=== PATIENT | female | born 1950 | race Caucasian/White ===

== ENCOUNTER 2016-05-30 12:20 | Observation (INO) ==
--- NOTE | 2016-05-30 12:35 | Emergency Department Note ---
Disposition Clinical Impression: Chest pain Disposition: Admitted As Inpatient Condition: Good General Adult HPI - General Chief complaint: ED Chest Pain Stated complaint: Chest Pain since 2am Time Seen by Provider: 05/30/16 12:27 Source: patient, family Limitations: no limitations - History of Present Illness Pain Scale: 6 - Related Data Home Medications Medication Instructions Recorded Confirmed Aspirin 81 mg PO DAILY 12/05/14 05/30/16 Lisinopril [Zestril] 20 mg PO DAILY 12/05/14 05/30/16 Nitroglycerin [Nitrostat] 0.4 mg SL Q5M PRN 12/05/14 05/30/16 Oxybutynin [Ditropan] 5 mg PO TID 12/05/14 05/30/16 Alendronate Sodium [Alendronate 70 mg PO FR 05/30/16 05/30/16 Sodium] Atorvastatin Calcium [Lipitor] 20 mg PO HS 05/30/16 05/30/16 Hydrochlorothiazide 25 mg PO DAILY 05/30/16 05/30/16 [Hydrochlorothiazide] Isosorbide MONOnitrate [Isosorbide 10 mg PO BID 05/30/16 05/30/16 Mononitrate] Omeprazole 10 mg PO DAILY 05/30/16 05/30/16 Allergies Allergy/AdvReac Type Severity Reaction Status Date / Time propoxyphene AdvReac Dizziness Verified 05/30/16 14:58 [From Tiffany-N] Past Medical History - Past Medical History Medical history: Reports: coronary artery disease, hypertension, malignancy, myocardial infarction, TIA Surgical history: Reports: , knee replacement Psychiatric history: Reports: no psych history - Social History Smoking Status: Former smoker Smokeless Tobacco Status: No Alcohol use: Reports: none Drug use: Reports: none Physical Exam - General Limitations: no limitations General appearance: alert, in no apparent distress Course Vital Signs Temperature 98.1 F 05/30/16 12:21 Pulse Rate 75 05/30/16 12:21 Respiratory Rate 18 05/30/16 12:21 Blood Pressure 132/82 05/30/16 12:21 O2 Sat by Pulse Oximetry 97 05/30/16 12:21 Temperature 97.9 F 05/31/16 06:30 Pulse Rate 78 05/31/16 06:30 Respiratory Rate 18 05/31/16 06:30 Blood Pressure 112/73 05/31/16 06:30 O2 Sat by Pulse Oximetry 97 05/31/16 06:30 Oxygen Delivery Oxygen Delivery Room Air Medical Decision Making - Lab Data Result diagrams: 05/31/16 02:52 05/31/16 02:52 Lab Results 05/30/16 05/30/16 05/30/16 Range/Units 12:47 12:47 12:47 WBC 5.8 (4.3-11.1) K/mcL RBC 4.39 (3.82-4.97) M/mcL Hgb 12.8 (11.5-15.4) g/dL Hct 39.2 (35.3-44.9) % MCV 89.3 (83.0-100.0) fL MCH 29.2 (28.0-33.3) pg MCHC 32.7 (31.6-35.5) g/dL RDW 14.1 (11.5-14.5) % Plt Count 195 (140-400) K/mcL MPV 11.7 (9.4-12.4) fL Immature Gran % 0.3 (0-4) % Seg Neutrophils % 64.3 % Lymphocytes % 27.4 % Monocytes % 6.6 % Eosinophils % 0.9 % Basophils % 0.5 % Neutrophils # 3.7 (1.6-8.9) K/mcL Lymphocytes # 1.6 (0.6-4.6) K/mcL Monocytes # 0.4 (0.0-1.3) K/mcL Eosinophils # 0.1 (0.0-0.6) K/mcL Basophils # 0.0 (0.0-0.2) K/mcL PT 12.0 (9.4-12.1) Seconds INR 1.1 APTT 32.4 (26.0-36.0) Seconds Sodium 135 L (136-145) mEq/L Potassium 4.7 H (3.5-4.5) mEq/L Chloride 98 (98-109) mEq/L Carbon Dioxide 26 (19-29) mEq/L BUN 18 (7-20) mg/dL Creatinine 0.90 (0.57-1.11) mg/dL Est GFR ( Amer) > 60 (> 60) Est GFR (Non-Af Amer) > 60 (> 60) BUN/Creatinine Ratio 20 (6-26) Glucose 111 H (70-99) mg/dL Calculated Osmolality 283 (280-300) Calcium 11.3 H (8.6-10.8) mg/dL Total Bilirubin (0.2-1.2) mg/dL Direct Bilirubin (0.0-0.5) mg/dL Indirect Bilirubin (0.0-1.2) mg/dL AST (5-34) Units/L ALT (0-55) Units/L Alkaline Phosphatase (38-126) Units/L Troponin I (0-0.03) ng/mL Serum Total Protein (6.0-8.3) g/dL Albumin (3.5-5.0) g/dL Globulin (2.4-3.5) g/dL Albumin/Globulin Ratio (1.1-2.2) 05/30/16 05/30/16 Range/Units 12:47 12:47 WBC (4.3-11.1) K/mcL RBC (3.82-4.97) M/mcL Hgb (11.5-15.4) g/dL Hct (35.3-44.9) % MCV (83.0-100.0) fL MCH (28.0-33.3) pg MCHC (31.6-35.5) g/dL RDW (11.5-14.5) % Plt Count (140-400) K/mcL MPV (9.4-12.4) fL Immature Gran % (0-4) % Seg Neutrophils % % Lymphocytes % % Monocytes % % Eosinophils % % Basophils % % Neutrophils # (1.6-8.9) K/mcL Lymphocytes # (0.6-4.6) K/mcL Monocytes # (0.0-1.3) K/mcL Eosinophils # (0.0-0.6) K/mcL Basophils # (0.0-0.2) K/mcL PT (9.4-12.1) Seconds INR APTT (26.0-36.0) Seconds Sodium (136-145) mEq/L Potassium (3.5-4.5) mEq/L Chloride (98-109) mEq/L Carbon Dioxide (19-29) mEq/L BUN (7-20) mg/dL Creatinine (0.57-1.11) mg/dL Est GFR ( Amer) (> 60) Est GFR (Non-Af Amer) (> 60) BUN/Creatinine Ratio (6-26) Glucose (70-99) mg/dL Calculated Osmolality (280-300) Calcium (8.6-10.8) mg/dL Total Bilirubin 0.8 (0.2-1.2) mg/dL Direct Bilirubin 0.3 (0.0-0.5) mg/dL Indirect Bilirubin 0.5 (0.0-1.2) mg/dL AST 15 (5-34) Units/L ALT 13 (0-55) Units/L Alkaline Phosphatase 59 (38-126) Units/L Troponin I 0.00 (0-0.03) ng/mL Serum Total Protein 7.2 (6.0-8.3) g/dL Albumin 4.1 (3.5-5.0) g/dL Globulin 3.1 (2.4-3.5) g/dL Albumin/Globulin Ratio 1.3 (1.1-2.2) Attestation Statement - Attestation Attestation: I examined this patient and my medical decision-making was reviewed with the POACHER WRINGER OPERATOR/PA/Advanced Practice Nurse/Resident Physician. I agree with the documented findings, disposition and treatment plan as described except to the extent set forth below. Face to face time provided Patient complains of chest discomfort over the past 10 hours. She admits to active chest pain at the time of my exam. She appears in no acute distress. EKG reviewed by me
[2016-05-30 12:53] LABS: Basophils % 0.5 %; Eosinophils # 0.1 K/mcL (0.0-0.6); Eosinophils % 0.9 %; Hematocrit 39.2 % (35.3-44.9); Hemoglobin 12.8 g/dL (11.5-15.4); Immature Granulocytes % 0.3 % (0-4); Lymphocytes # 1.6 K/mcL (0.6-4.6); Lymphocytes % 27.4 %; Mean Corpuscular HGB Conc 32.7 g/dL (31.6-35.5); Mean Corpuscular Hemoglobin 29.2 pg (28.0-33.3); Mean Corpuscular Volume 89.3 fL (83.0-100.0); Mean Platelet Volume 11.7 fL (9.4-12.4); Monocytes # 0.4 K/mcL (0.0-1.3); Monocytes % 6.6 %; Neutrophils # 3.7 K/mcL (1.6-8.9); Platelet Count 195 K/mcL (140-400); Red Blood Count 4.39 M/mcL (3.82-4.97); Red Cell Distribution Width 14.1 % (11.5-14.5); Segmented Neutrophils % 64.3 %
--- NOTE | 2016-05-30 12:59 | Emergency Department Note ---
Disposition Clinical Impression: Chest pain Qualifiers: Chest pain type: unspecified Qualified Code(s): R07.9 - Chest pain, unspecified Disposition: Admitted As Inpatient Condition: Good Instructions: Chest Pain (ED) Referrals: NO,PCP [Non-Partnered Physician] - Forms: ED Satisfaction Letter Time of Disposition: 13:45 Chest Pain HPI - General Chief Complaint: ED Chest Pain Stated Complaint: Chest Pain since 2am Time Seen by Provider: 05/30/16 12:27 Source: patient, family Mode of arrival: ambulatory Limitations: no limitations Vital Signs Reviewed: Yes Nursing Notes Reviewed: Yes - History of Present Illness HPI Narrative: 65-year-old female history of hypertension, former smoker, CAD present the ED with chest pain. She reports waken up at 2 AM this morning to go to the bathroom, while at rest sitting she experienced a sharp stabbing chest pain radiating to the left shoulder. She took one nitro which relieved her pain. She proceeded to go to sleep and woke up around 4 o'clock where she experienced sharp pain again. Since then she has taken a total of 2 nitro with moderate relief. She is currently experiencing a dull ache in the chest. She has taken a total of 162 mg aspirin today. She denies any shortness of breath, diaphoresis, nausea, vomiting or palpitations with the pain. Denies any recent illness, fevers, cough. She reports a normal stress tests and heart catheterization performed at [facility] July 2014. She recently had her carotids cleaned she reports. History of breast cancer 10 years ago denies any blood clots, recent long-distance travel, surgery, hospitalizations. Severity scale (1-10): 6 - Related Data Home Medications Medication Instructions Recorded Confirmed Aspirin 81 mg PO DAILY 12/05/14 12/05/14 Calcium Carbonate/Vitamin D3 1 each PO DAILY 12/05/14 12/05/14 [Calcium 500-Vit D3 400 Tablet] HydrOXYzine 25 mg PO DAILY 12/05/14 12/05/14 Isosorbide DInitrate [Isosorbide 50 mg PO BID 12/05/14 12/05/14 Dinitrate] Lisinopril [Zestril] 20 mg PO DAILY 12/05/14 12/05/14 Methocarbamol [Robaxin] 500 mg PO Q6H 12/05/14 12/05/14 Nitroglycerin [Nitrostat] 0.4 mg SL Q5M PRN 12/05/14 12/05/14 Omeprazole [PriLOSEC] 20 mg PO DAILY 12/05/14 12/05/14 Oxybutynin [Ditropan] 5 mg PO BID 12/05/14 12/05/14 Previous Rx's Medication Instructions Recorded OxyCODONE Immed Rel [Roxicodone 5 1 - 2 tab PO Q4H PRN #30 tablet 12/06/14 MG] Allergies Allergy/AdvReac Type Severity Reaction Status Date / Time Sulfa (Sulfonamide Allergy Mild Vomiting Verified 12/05/14 08:13 Antibiotics) All systems ED: reviewed and negative except as stated. Constitutional: Denies: fever, chills Cardiovascular: Reports: chest pain Respiratory: Denies: cough, dyspnea Gastrointestinal: Denies: abdominal pain, nausea, vomiting, diarrhea, melena, hematochezia Genitourinary: Denies: urgency, dysuria Musculoskeletal: Denies: back pain, neck pain Integumentary: Denies: rash, abrasion Neurological: Denies: headache, weakness Chest Pain PMH - Past Medical History Medical history: Reports: coronary artery disease, hypertension, malignancy, myocardial infarction, TIA Surgical history: Reports: , knee replacement Psychiatric history: Reports: no psych history - Social History Smoking Status: Former smoker Alcohol use: Reports: none Drug use: Reports: none Physical Exam - General Limitations: no limitations General appearance: alert, in no apparent distress - Head Head exam: atraumatic, normocephalic, normal inspection - Eye Eye exam: Present: normal appearance, PERRL, EOMI - ENT ENT exam: normal exam, normal oropharynx, mucous membranes moist - Neck Neck exam: Present: normal inspection, full ROM, trachea midline - Chest Chest inspection: Present: symmetric chest wall rise, other (left masectomy). Absent: tenderness - Respiratory Respiratory exam: Present: normal lung sounds bilaterally. Absent: respiratory distress, wheezes - Cardiovascular Cardiovascular exam: Present: regular rate, normal rhythm, normal heart sounds. Absent: systolic murmur, diastolic murmur - Abdominal Exam Abdominal exam: Present: soft, Non-Tender, normal bowel sounds. Absent: tenderness, distention, guarding, rebound, rigidity - Extremities Exam Extremities exam: Present: normal inspection, full ROM, normal capillary refill. Absent: tenderness, pedal edema, calf tenderness - Neurological Exam Neurological exam: Present: alert, oriented X3, normal gait - Psychiatric Psychiatric exam: Present: normal affect, normal mood - Skin Skin exam: Present: warm, dry, intact, normal color Course Course Narrative: 65-year-old female history of hypertension, CAD, former smoker presents to the ED with chest pain. Occurred at 2 AM this morning. She has taken a total of 3 nitro with moderate relief. Reports taking 161 mg aspirin today. Patient peers in no acute distress. Vital signs are stable. Heart is regular rate and rhythm. Lungs are clear auscultation bilaterally. Abdomen is soft nontender nondistended. Legs are nonedematous without calf tenderness. EKG is normal sinus rhythm without any acute ischemic changes. Chest pain workup initiated. Will obtain records from [facility]. HEART score 4 pending troponin. Nitro trial ordered, BP 132/82. - Reevaluation(s) Reevaluation #1: Troponin is 0. The EKG does not reveal any acute ischemic changes. It is normal sinus rhythm. HEART score is 4. CXR reveals no acute pulmonary process with hiatal hernia. Records from [facility] are pending from her heart catheterization performed July 2014. Patient will be admitted for further chest pain workup. Patient is in agreement with plan. Hospitalist page. Time: 13:26 Reevaluation #2: Records retrieved from [facility], a heart catheter report was not sent. There is a report 08/19/2014 following her left heart catheterization which dates mild to moderate non-obstructive coronary arterial disease noted in the ostium of the LAD, right coronary artery and proximal LAD. At that time she was recommended lifestyle risk modification such as smoking cessation. A carotid Doppler was also sent which revealed calcified plaque in the left carotid with good vertebral flow bilaterally. Time: 14:19 - Consultations Consultation #1: Spoke with on-call hospitalist david Maddox to admit for chest pain R/O ACS. No further orders at this time Time: 13:42 Vital Signs Temperature 98.1 F 05/30/16 12:21 Pulse Rate 75 05/30/16 12:21 Respiratory Rate 18 05/30/16 12:21 Blood Pressure 132/82 05/30/16 12:21 O2 Sat by Pulse Oximetry 97 05/30/16 12:21 Temperature 98.1 F 05/30/16 12:21 Pulse Rate 61 05/30/16 14:05 Respiratory Rate 16 05/30/16 14:05 Blood Pressure 138/96 05/30/16 14:05 O2 Sat by Pulse Oximetry 99 05/30/16 14:05 Oxygen Delivery Oxygen Delivery Room Air Chest Pain - Medical Records Medical records reviewed: Yes I reviewed the patient's medical records. - Lab Data Lab results reviewed: Yes I reviewed the patient's lab results. Result diagrams: 05/30/16 12:47 05/30/16 12:47 Lab Results 05/30/16 05/30/16 05/30/16 Range/Units 12:47 12:47 12:47 WBC 5.8 (4.3-11.1) K/mcL RBC 4.39 (3.82-4.97) M/mcL Hgb 12.8 (11.5-15.4) g/dL Hct 39.2 (35.3-44.9) % MCV 89.3 (83.0-100.0) fL MCH 29.2 (28.0-33.3) pg MCHC 32.7 (31.6-35.5) g/dL RDW 14.1 (11.5-14.5) % Plt Count 195 (140-400) K/mcL MPV 11.7 (9.4-12.4) fL Immature Gran % 0.3 (0-4) % Seg Neutrophils % 64.3 % Lymphocytes % 27.4 % Monocytes % 6.6 % Eosinophils % 0.9 % Basophils % 0.5 % Neutrophils # 3.7 (1.6-8.9) K/mcL Lymphocytes # 1.6 (0.6-4.6) K/mcL Monocytes # 0.4 (0.0-1.3) K/mcL Eosinophils # 0.1 (0.0-0.6) K/mcL Basophils # 0.0 (0.0-0.2) K/mcL PT 12.0 (9.4-12.1) Seconds INR 1.1 APTT 32.4 (26.0-36.0) Seconds Sodium 135 L (136-145) mEq/L Potassium 4.7 H (3.5-4.5) mEq/L Chloride 98 (98-109) mEq/L Carbon Dioxide 26 (19-29) mEq/L BUN 18 (7-20) mg/dL Creatinine 0.90 (0.57-1.11) mg/dL Est GFR ( Amer) > 60 (> 60) Est GFR (Non-Af Amer) > 60 (> 60) BUN/Creatinine Ratio 20 (6-26) Glucose 111 H (70-99) mg/dL Calculated Osmolality 283 (280-300) Calcium 11.3 H (8.6-10.8) mg/dL Troponin I (0-0.03) ng/mL 05/30/16 Range/Units 12:47 WBC (4.3-11.1) K/mcL RBC (3.82-4.97) M/mcL Hgb (11.5-15.4) g/dL Hct (35.3-44.9) % MCV (83.0-100.0) fL MCH (28.0-33.3) pg MCHC (31.6-35.5) g/dL RDW (11.5-14.5) % Plt Count (140-400) K/mcL MPV (9.4-12.4) fL Immature Gran % (0-4) % Seg Neutrophils % % Lymphocytes % % Monocytes % % Eosinophils % % Basophils % % Neutrophils # (1.6-8.9) K/mcL Lymphocytes # (0.6-4.6) K/mcL Monocytes # (0.0-1.3) K/mcL Eosinophils # (0.0-0.6) K/mcL Basophils # (0.0-0.2) K/mcL PT (9.4-12.1) Seconds INR APTT (26.0-36.0) Seconds Sodium (136-145) mEq/L Potassium (3.5-4.5) mEq/L Chloride (98-109) mEq/L Carbon Dioxide (19-29) mEq/L BUN (7-20) mg/dL Creatinine (0.57-1.11) mg/dL Est GFR ( Amer) (> 60) Est GFR (Non-Af Amer) (> 60) BUN/Creatinine Ratio (6-26) Glucose (70-99) mg/dL Calculated Osmolality (280-300) Calcium (8.6-10.8) mg/dL Troponin I 0.00 (0-0.03) ng/mL - Radiology Data Radiology results reviewed: Yes I reviewed the patient's radiology results. Chest X-Ray 05/30/16 12:26 IMPRESSION: No acute cardiopulmonary process. Large hiatal hernia. D/ / 05/30/2016 13:22:04 Dorothea Diez MD / tristan Interpreting Provider: Dorothea Diez MD - EKG Data EKG attestation: Yes I reviewed and interpreted this EKG. EKG results narrative: EKG performed 1227 normal sinus rhythm 77 bpm, good R-R wave progression, normal axis, there are no ST elevations or depressions, no T-wave inversions. Intervals are within normal limits UT interval 177 QRS 89 QT QTC 364 396. Compared to old EKG performed 06/13/2014 shows consistent findings normal sinus rhythm with a right ventricular conduction delay. No acute ischemic changes. Heart Score - Score History: Moderately Suspicious EKG: Normal Age: 45-65 Risk Factors: Equal/Greater than 3 risk factor or history of atherosclerotic disease Troponin: Less than normal limit HEART Score Total: 4
[2016-05-30 13:03] LABS: INR 1.1
[2016-05-30 13:05] LABS: BUN/Creatinine Ratio 20 (6-26); Blood Urea Nitrogen 18 mg/dL (7-20); Calcium 11.3 mg/dL (8.6-10.8); Carbon Dioxide 26 mEq/L (19-29); Chloride 98 mEq/L (98-109); Glucose 111 mg/dL (70-99); Osmolality,Calculated 283 (280-300); Potassium 4.7 mEq/L (3.5-4.5); Sodium 135 mEq/L (136-145); eGFR For African Americans > 60 (> 60); eGFR For Non-African Americans > 60 (> 60)
[2016-05-30 13:06] LABS: Activated Partial Thrombo Time 32.4 Seconds (26.0-36.0)
[2016-05-30] MEDS ORDERED: Nitroglycerin 0.4 MG TAB.SUBL SL PRN ×2 (13:28→17:55)
--- NOTE | 2016-05-30 14:58 | Internal Med History&Physical ---
<Endy King T - Last Filed: 05/30/16 17:10> Date of Encounter: 05/30/16 Internal Medicine - H&P: HPI History of present illness: Ms. Riddle is a 65 year old female Internal Medicine - H&P: Meds Aspirin 81 mg PO DAILY 12/05/14 [History] Lisinopril [Zestril] 20 mg PO DAILY 12/05/14 [History] Nitroglycerin [Nitrostat] 0.4 mg SL Q5M PRN 12/05/14 [History] Oxybutynin [Ditropan] 5 mg PO TID 12/05/14 [History] Alendronate Sodium [Alendronate Sodium] 70 mg PO FR 05/30/16 [History] Atorvastatin Calcium [Lipitor] 20 mg PO HS 05/30/16 [History] Hydrochlorothiazide [Hydrochlorothiazide] 25 mg PO DAILY 05/30/16 [History] Isosorbide MONOnitrate [Isosorbide Mononitrate] 10 mg PO BID 05/30/16 [History] Omeprazole 10 mg PO DAILY 05/30/16 [History] Allergies propoxyphene [From Darvocet-N] Adverse Reaction (Verified 05/30/16 14:58) Dizziness All Systems PM: A 10-system review of systems was performed and is negative for pertinent findings except as documented above in the HPI. - Constitutional Vitals: Temp Pulse Resp BP Pulse Ox 98.1 F 72 18 112/71 96 05/30/16 12:21 05/30/16 16:10 05/30/16 16:51 05/30/16 16:51 05/30/16 16:10 Internal Med - H&P Results - Labs CBC & Chem 7: 05/30/16 12:47 05/30/16 12:47 - Attending Attestation I examined this patient and my medical decision-making was reviewed with the WOOD DRILL OPERATOR/PA/Advanced Practice Nurse/Resident Physician. I agree with the documented findings, disposition and treatment plan as described except to the extent set forth below. 65 Y.O F with PMH of HTN, TIA, s/p CEA, presented with chest pain said to have started last night, pain was substernal and radiating to L arm, she denies any other symptoms. At time of review, she is s/p NTG SL X4 and 2 aspirins, she did not have chest pain any longer at my time of review. Physical exam: VSS, systemic exam unremarkable except for s/p mastectomy, no chest wall tenderness Labs and Imaging reviewed: CBC, chem, WNL. EKG is non-ischemic. CXR unremarkable. EKG NSR, no ischemic changes. Report from [facility] in 2014 with moderate non-obstructive CAD Assessment/Plan: Chest pain, highly suspicious for cardiac origin, initial troponin is negative, obtain ECHO, trend troponin, continue home doses of ASA, ACEI, Lipitor, Hold Isosorbide and no BB for possible nuclear stress test a.m, if chest pain recurs, patient will need nitro drip and urgent cardiology review. Chronic medical conditions are stable and other home meds may be resumes. Rest of details as in ALEIDA Cullen documentation <Arie Sauceda - Last Filed: 05/30/16 19:15> Date of Encounter: 05/30/16 Time of Encounter: 14:40 Assessment and Plan (1) Chest pain Current visit: Yes Status: Acute Assess: Ms. Riddle is a 65 year old female who presents from the ED with chief complaint of chest pain. Patient currently reports ongoing chest pain in her left chest since this episode began early this morning about 2 a.m. Patient describes her pain as constant then subsiding with radiation around to her back on the left side. She describes the pain as being 6 to 7 on a scale of 0 to 10 when it first began. She reports taking three rounds of nitroglycerin which reduced the pain to 2 to 3, however the pain continues to increase and is unresolved. Patient reports she had a myocardial infarction in 07/2014. Patient states she had a cardiac stress test (treadmill) in 2013 at [facility]. Patient reports chest pain rating of 4 to 5 during assessment and examination. She was given another dose of SL nitroglycerin and reports pain was reduced to level of 2-3. Plan: Continue aspirin Continue nitroglycerin EKG ordered EV echocardiogram ordered Nuclear stress test ordered NM katarina perf SPECT ordered Continuous cardiac monitoring Continuous pulse ox monitoring Acetaminophen ordered PRN for pain 1-3 Hydrocodone ordered PRN for pain 4-6 Morphine ordered PRN for pain 7-10 Qualifiers: Chest pain type: unspecified Qualified Code(s): R07.9 - Chest pain, unspecified (2) HTN (hypertension) Current visit: Yes Status: Chronic Assess: Patient presents with history of chronic HTN. Plan: Continue hydrochlorothiazide Continue lisinopril Monitor vitals and BP Qualifiers: Hypertension type: essential hypertension Qualified Code(s): I10 - Essential (primary) hypertension (3) Coronary artery disease Current visit: No Status: Chronic Assess: Patient presents with history of coronary artery disease. Plan: Continue aspirin Continuous cardiac monitoring ordered EKG ordered EV echocardiogram ordered Monitor vitals Qualifiers: Coronary Disease-Associated Artery/Lesion type: [place] artery [place] vs. transplanted heart: [place] heart Associated angina: angina presence unspecified Qualified Code(s): I25.10 - Atherosclerotic heart disease of [place] coronary artery without angina pectoris (4) DVT prophylaxis Current visit: Yes Status: Acute DVT prophylaxis ordered due to patient being inpatient status, chest pain, history of CAD, and [place]. Internal Medicine - H&P: HPI Chief complaint: Chest pain Admitted From: Emergency Dept Plans for Post Hospital Care: Home History of present illness: Ms. Riddle is a 65 year old female who presents from the ED with chief complaint of chest pain. Patient currently reports ongoing chest pain in her left chest since this episode began early this morning about 2 a.m. Patient describes her pain as constant then subsiding with radiation around to her back on the left side. She describes the pain as being 6 to 7 on a scale of 0 to 10 when it first began. She reports taking three rounds of nitroglycerin which reduced the pain to 2 to 3, however the pain continues to increase and is unresolved. Patient reports she had a myocardial infarction in 07/2014. Patient states she had a cardiac stress test (treadmill) in 2013 at [facility]. Patient reports chest pain rating of 4 to 5 during assessment and examination. She was given another dose of SL nitroglycerin and reports pain was reduced to level of 2-3. Patient was a tobacco abuser (3 packs daily) until 2014 when she suffered her [place]. She reports that she hasn't smoked since. Patient also reports having a left carotid endarterectomy in 2014. Mrs. Riddle has a history of osteoporosis, HTN, CAD, [place] (2014), Stroke (2014), TIA , and breast cancer for which she had a left breast mastectomy in 2006. Patient states that she sometimes experiences heart flutters. Denies being under the care of a user support specialist currently. Patient to be admitted as observation status. Continuous cardiac monitoring ordered. Troponins to be cycled. Past Med Surg Social Fam HX - Past Medical History Medical history: coronary artery disease, hypertension, malignancy, myocardial infarction, osteoporosis, TIA (Patient also reports she had a stroke in 2015) Psychiatric history: no psych history - Past Surgical History Surgical History: breast surgery (Left mastectomy), , carotid endarterectomy (Left side only in 2015), knee replacement (Bilteral knee replacement), other (Right shoulder surgery) - Social History Smoking Status: Former smoker Packs per day: 3 packs Smokeless Tobacco Status: No Alcohol use: none Drug use: none Occupational status: other Current living situation: Home, With Family Activity Level: Independent ambulation Recent Out of Country Travel Within the Last 8 Weeks: No Exposure or Possible Exposure to Illness During Travel: No - Family History Mother Race: Family Member Ethnicity: Non- Living Status: Age at : 74 Hx Family Cardiac Disorders: Yes (CHF) Hx Family Endocrine Disorder: Yes (DM) Father Race: Family Member Ethnicity: Non- Living Status: Age at : 61 Hx Family Cardiac Disorders: Yes (Massive [place]) Sister Age: 63 Race: Family Member Ethnicity: Non- Living Status: Still Living Hx Family Cardiac Disorders: Yes (Stents in legs) Brother Age: 58 Race: Family Member Ethnicity: Non- Living Status: Still Living Hx Family Cardiac Disorders: Yes (Stroke) Hx Family Endocrine Disorder: Yes (DM) All Systems PM: A 10-system review of systems was performed and is negative for pertinent findings except as documented above in the HPI. - Constitutional Constitutional: no chills, no fever(s), no night sweats Additional comments: Mrs. Riddle denies any fever, chills, recent illness, night sweats, chronic fatigue or weakness. - EENT Eyes: no change in vision, no discharge, no pain, no photophobia Ears: no ear discharge, no ear pain, no tinnitus Nose, mouth and throat: no dysphagia, no nasal discharge, no neck pain, no sore throat - Breasts Breasts: as per HPI Additional comments: Patient reports that she was diagnosed with breast cancer 10 years ago and had a mastectomy of her left breast in 2006. Reports she has not had any problems in the past 10 years and does not follow up with an oncologist regarding this. - Cardiovascular Cardiovascular ROS IM: chest pain, edema, palpitations, no diaphoresis, no dyspnea, no lightheadedness, no syncope Additional comments: Mrs. Riddle currently reports ongoing chest pain in her left chest since this episode began early this morning about 2 a.m. Patient describes her pain as constant then subsiding with radiation around to her back on the left side. She describes the pain as being 6 to 7 on a scale of 0 to 10 when it first began. She reports taking three rounds of nitroglycerin which reduced the pain to 2 to 3, however the pain continues to increase and is unresolved. Patient reports she had a myocardial infarction 07/2014. Reports she also had a stroke in 2014. Patient states she had a cardiac stress test (treadmill) in 2013 at [facility]. - Respiratory Respiratory: snoring, no cough, no dyspnea, no wheezing, no excessive phlegm production Additional comments: Patient denies, cough, dyspnea, wheezing, or phlegm/excessive sputum production. Patient does report snoring during sleep. confirms snoring but denies any apneic episodes. - Gastrointestinal Gastrointestinal: no abdominal pain, no diarrhea, no hematemesis, no hematochezia, no melena, no nausea, no vomiting Additional comments: Patient reports her bowels move daily and that her BMs are brown and formed. Denies recurrent diarrhea or incidence of hematochezia. Patient denies N/V/ hematemesis. - Genitourinary Genitourinary: urinary incontinence, no change in urinary stream, no dysuria, no flank pain, no hematuria Additional comments: Patient denies presence of urinary burning, urgency, and hesitation. Patient confirms mild urinary incontinence which has been occurring for some time. Menstruation: post menopausal - Musculoskeletal Musculoskeletal ROS IM: back pain, muscle cramps, no numbness, no tingling Additional comments: Patient denies any muscle weakness or fatigue, numbness, or tingling in her extremities. Patient does report cramping in her toes at night. - Integumentary Integumentary IM: no rash, no unusual bruising Additional comments: Patient denies any skin breakdown or changes in skin integrity. - Neurological Neurological ROS: as per HPI, no confusion, no convulsions, no focal weakness, no numbness, no tingling, no tremor(s) Additional comments: Mrs. Riddle is alert and oriented x3 and denies any neurological deficits, convulsions, seizures, tremors, focal deficits, dizziness, numbness, or tingling. - Psychiatric Psychiatric: as per HPI Additional comments: Patient denies any history of psychiatric problems, anxiety, or depression. - Endocrine Endocrine IM: as per HPI Additional comments: Patient denies any chronic weakness or fatigue, excessive sweating, or heat/ cold intolerance. - Hematologic/Lymphatic Hematologic/Lymphatic: no easy bruising Additional comments: Patient denies unusual bruising or bleeding. - Allergic/Immunologic Allergic/Immunologic: as per HPI - Constitutional Vitals: Temp Pulse Resp BP Pulse Ox 98.1 F 74 16 110/56 97 05/30/16 12:21 05/30/16 14:52 05/30/16 14:52 05/30/16 14:52 05/30/16 14:52 General appearance: Present: cooperative, A&O X 3, pleasant, no acute distress, answers questions appropriately Exam: Mrs. Riddle is alert and oriented x3, pleasant, cooperative, in good humor, and answers questions appropriately. Patient does not present with any outward symptoms of distress or discomfort, however she reports her chest pain as being 4 on a scale of 0 to 10. Patient given another dose of nitroglycerin during examination which she states brought her pain down to 3. - Head Head exam: Present: atraumatic, normocephalic - Eye Eye exam: Present: normal appearance, PERRL, conjuntiva pink, sclera anicteric Pupils: Present: PERRL Additional comments: Upon examination, PERRL without presence of nystagmus. - ENT ENT exam: Present: normal exam, normal external ear exam - Neck Neck exam general surgery: Present: normal inspection, supple, trachea midline - Respiratory Respiratory exam: Present: CTAB. Absent: accessory muscle use, rales, rhonchi, wheezes Additional comments: Upon auscultation, there are no abnormal breath sounds on inspiration or expiration bilaterally in ay lobes. - Cardiovascular Cardiovascular exam: Present: RRR, +S1, +S2. Absent: diastolic murmur, gallop, rubs, systolic murmur - GI/Abdominal GI/Abdominal exam: Present: normal bowel sounds, soft, no peritoneal signs Additional comments: Upon examination, Mrs. Camacho abdomen is soft with no signs of guarding or tenderness present upon palpation. Normal bowel sounds present in all quadrants. - Rectal Rectal exam: Present: deferred Additional comments: Rectal exam deferred. - Additional comments: exam deferred. - Extremities Exam Extremities exam: Present: normal capillary refill, normal inspection, warm, radial pulses palpable and symetrical Additional comments: Upon examination, patient's extremities are normal in color and good cap refill is present bilaterally in fingers and toes (<2). Extremities are warm and dry with no signs of skin breakdown or excoriation. Radial pulses are palpable and symmetrical bilaterally. - Back Exam Back exam: Present: normal inspection - Neurological Exam Neurological exam: Present: alert, oriented X3, reflexes normal, no focal deficits, strengths equal and symetr throughout Additional comments: Mrs. Riddle is alert and oriented x3 upon examination and assessment. Patient does not exhibit any focal deficits and is cooperative, conversational, answers all questions appropriately, and is in no apparent distress. No pronater drift. No speech deficits present. - Psychiatric Psychiatric exam: Present: normal affect, normal mood Additional comments: Patient denies any psychiatric history and denies anxiety and depression. - Skin Skin exam: Present: dry, intact, normal color, warm Additional comments: Upon examination, Mrs. Camacho skin is intact, normal color, warm, and dry. Patient denies any changes in skin integrity. Internal Med - H&P Results - Labs CBC & Chem 7: 05/30/16 12:47 05/30/16 12:47 Labs: Short CBC 05/30/16 Range/Units 12:47 WBC 5.8 (4.3-11.1) K/mcL Hgb 12.8 (11.5-15.4) g/dL Hct 39.2 (35.3-44.9) % Plt Count 195 (140-400) K/mcL Neutrophils # 3.7 (1.6-8.9) K/mcL BMP 05/30/16 12:47 Sodium 135 L Potassium 4.7 H Chloride 98 Carbon Dioxide 26 BUN 18 Creatinine 0.90 Glucose 111 H Calcium 11.3 H Cardiac Enzymes 05/30/16 Range/Units 12:47 Troponin I 0.00 (0-0.03) ng/mL - EKG Data EKG shows normal: sinus rhythm - EKG Data Prior EKG available for review: yes When compared to previous EKG: there are significant changes EKG comments: 05/30/16 15:16 EKG dated 05/30/16 shows normal sinus rhythm and normal ECG. EKG dated 06/13/14 shows sinus rhythm with possible right ventricular conduction delay. - Impressions ITS Impressions Chest X-Ray 05/30/16 12:26 IMPRESSION: No acute cardiopulmonary process. Large hiatal hernia. D/ / 05/30/2016 13:22:04 Dorothea Diez MD / tristan Interpreting Provider: Dorothea Diez MD - Diagnostic Studies Chest x-ray Additional comments: CXR dated 05/30/16 shows trachea midline. Cardiac silhouette unremarkable. Lungs clear without evidence of infiltrate, mass, or pneumothorax. No pleural fluid present. Previous repair on right shoulder. Large hiatal hernia present. No acute cardiopulmonary process. No comparative study.
[2016-05-30 16:38] LABS: Albumin 4.1 g/dL (3.5-5.0); Albumin/Globulin Ratio 1.3 (1.1-2.2); Bilirubin,Direct 0.3 mg/dL (0.0-0.5); Bilirubin,Indirect 0.5 mg/dL (0.0-1.2); Bilirubin,Total 0.8 mg/dL (0.2-1.2); Globulin 3.1 g/dL (2.4-3.5); Total Protein 7.2 g/dL (6.0-8.3)
[2016-05-30] MEDS ORDERED: *HR* HYDROcodone/Acet 5/325 mg TABLET PO PRN (17:56)
[2016-05-30] MEDS ORDERED: Acetaminophen 325 MG TABLET PO PRN (17:56)
[2016-05-30] MEDS ORDERED: Naloxone 0.4 MG/ML INJ IVP PRN (17:56)
[2016-05-30] MEDS ORDERED: *HR* Morphine 2 MG/ML SYRINGE IVP PRN (17:56)
[2016-05-31 03:17] LABS: Basophils % 0.7 %; Eosinophils # 0.1 K/mcL (0.0-0.6); Eosinophils % 2.2 %; Hematocrit 35.6 % (35.3-44.9); Immature Granulocytes % 0.2 % (0-4); Lymphocytes # 2.1 K/mcL (0.6-4.6); Lymphocytes % 35.7 %; Mean Corpuscular HGB Conc 33.7 g/dL (31.6-35.5); Mean Corpuscular Hemoglobin 30.2 pg (28.0-33.3); Mean Corpuscular Volume 89.7 fL (83.0-100.0); Mean Platelet Volume 12.2 fL (9.4-12.4); Monocytes # 0.5 K/mcL (0.0-1.3); Monocytes % 8.3 %; Neutrophils # 3.2 K/mcL (1.6-8.9); Platelet Count 177 K/mcL (140-400); Red Blood Count 3.97 M/mcL (3.82-4.97); Red Cell Distribution Width 14.5 % (11.5-14.5); Segmented Neutrophils % 52.9 %
[2016-05-31 03:31] LABS: Calcium 9.9 mg/dL (8.6-10.8); Potassium 4.2 mEq/L (3.5-4.5)
[2016-05-31 06:23] LABS: Bilirubin,Urine Negative (Negative); Blood,Urine Negative (Negative); Clarity,Urine Cloudy (Clear); Color,Urine Yellow (Yellow); Glucose,Urine (UA) Normal (Normal); Ketones,Urine Negative (Negative); Leukocyte Esterase,Urine Moderate (Negative); Nitrite,Urine Negative (Negative); PH,Urine 6.5 pH Units (5.0-8.0); Protein,Urine Negative (Neg-Trace); Specific Gravity,Urine 1.021 (1.010-1.025); Urobilinogen,Urine Normal (Normal)
[2016-05-31 06:25] LABS: Bacteria,Urine Many per hpf (None-Few); Hyaline Casts,Urine None Seen per lpf (None-Few); RBC,Urine 0-3 per hpf (0-3); Squamous Epithelial Cell,Urine Many per lpf (None-Few); WBC,Urine TNTC per hpf (0-3)
[2016-05-31] MEDS ORDERED: *HR* Enoxaparin 40 MG/0.4 ML SYRINGE SQ SCH (07:00)
[2016-05-31] MEDS ORDERED: Regadenoson 0.4 MG/5 ML SYRINGE IVP ONE (07:57)
[2016-05-31] MEDS ORDERED: Aspirin 81 MG TAB.CHEW PO SCH (09:00)
[2016-05-31] MEDS ORDERED: hydroCHLOROthiazide 25 MG TABLET PO SCH (09:00)
[2016-05-31] MEDS ORDERED: Lisinopril 20 MG TABLET PO SCH (09:00)
--- NOTE | 2016-05-31 11:45 | Nuclear Medicine Stress Report ---
Regadenoson Nuclear Stress Name: Tequila Riddle Date of Study: 05/31/2016 Date: 1950 Ht: 60.0 in Medical Record#: [id number] Age: 65 Wt: 151.0 lb Gender: Female Order #: [id number] Location: [facility] Room: OPT Supervising Provider: Dolly Giraldo CNP Reading Physician: Anuel Rachel DO, DAVID PRESTON FASNC Ordering Physician: Endy King MD Primary Care Physician: Arnulfo Pope DO Stress Technologist: Betty Devine, STEMMER MACHINE, CCT, CPFT Parts Person: Bruno Moralez Indications: Chest Pain Impression: Pharmacologic stress ECG is negative for ischemia at level of heart rate achieved. Gated EF > 70%. Perfusion imaging was negative for ischemia or infarct. History: Hypertension Stress Test Summary: Stress Test Type: Pharmacologic Regadenoson 0.4mg/5ml given IV Baseline Information: Initial Heart Rate: 74 Blood Pressure: 110/60 Stress Information: Stress Time: 4 min sec Test Terminated Due to (primary): As per protocol Maximum Blood Pressure: 100/52 Maximum Heart Rate: 117 Percent Maximum Heart Rate Achieved: 75 Double Product: [id number] METS Reached: 1 Symptoms: Shortness of breath Nuclear Summary: SPECT myocardial perfusion imaging using Tc99m Sestamibi given intravenously was performed at rest and following cardiac stress testing. The resting images were obtained following initial dose of 11 mCi. Following stress an additional dose of 30 mCi was given at peak exercise or 30 seconds post regadenoson infusion. Medication Given: Time Medication Dose Units Route Findings: Stress Note * Resting ECG demonstrated normal sinus rhythm. * No baseline arrhythmias were noted. * Pharmacologic stress ECG is negative for ischemia at level of heart rate achieved. * No arrhythmias were noted during stress. * Patient had no chest pain during stress. Hemodynamic responses * Normal hemodynamic responses to pharmacologic stress. Study Quality * Study quality is good. Gated EF > 70% * Gated EF > 70%. Left Ventricle * The left ventricle is not dilated. LVEDV = 36 mL. NORMALS * Normal wall motion. * Normal Segmental Perfusion in rest. * Normal segmental perfusion in stress. TID * No evidence of transient ischemic dilatation. TID ratio = 0.94. Lung Uptake * There is no evidence of increase lung uptake. Updated by Anuel Rachel DO, MOHAN, DAVID, CHYNA on 05/31/2016 11:41:27 AM electronically signed on 05/31/2016 11:42:17 AM with status of Final
--- NOTE | 2016-05-31 11:58 | Discharge Summary ---
Date of Encounter: 05/31/16 Time of Encounter: 11:57 - Discharge Diagnosis (1) Coronary artery disease Priority: Primary Status: Chronic Qualifiers: Coronary Disease-Associated Artery/Lesion type: [place] artery [place] vs. transplanted heart: [place] heart Associated angina: angina presence unspecified Qualified Code(s): I25.10 - Atherosclerotic heart disease of [place] coronary artery without angina pectoris (2) Essential hypertension Priority: Secondary Status: Chronic (3) Tobacco abuse Priority: Secondary Status: Chronic (4) HTN (hypertension) Priority: Secondary Status: Chronic Qualifiers: Hypertension type: essential hypertension Qualified Code(s): I10 - Essential (primary) hypertension - Discharge Medications Home Medications: Aspirin 81 mg PO DAILY 12/05/14 [History] Lisinopril [Zestril] 20 mg PO DAILY 12/05/14 [History] Nitroglycerin [Nitrostat] 0.4 mg SL Q5M PRN 12/05/14 [History] Oxybutynin [Ditropan] 5 mg PO TID 12/05/14 [History] Alendronate Sodium 70 mg PO FR 05/30/16 [History] Atorvastatin Calcium [Lipitor] 20 mg PO HS 05/30/16 [History] Hydrochlorothiazide 25 mg PO DAILY 05/30/16 [History] Omeprazole 10 mg PO DAILY 05/30/16 [History] Isosorbide MONOnitrate [Isosorbide Mononitrate] 20 mg PO BID #0 05/31/16 [Rx] Allergies/Adverse Reactions: Allergies propoxyphene [From Darvocet-N] Adverse Reaction (Verified 05/30/16 14:58) Dizziness Procedures/tests Complete & Pending: Procedures Performed prior 72 hours Category Date Time Status NM katarina perf SPECT multi [NM] Routine Exams 05/30/16 18:43 Taken EV echocardiogram Stat Y 05/31/16 16:02 Completed SP pharm nuclear stress Routine Y 05/31/16 08:10 Completed Date of admission: 05/30/16 15:01 Primary care physician: Arnulfo Pope, Discharging clinician: Endy King Anticipated date of discharge: 05/31/16 - Patient Status Disposition: Home, Self-Care Condition: Good Functional capacity at discharge: independent ambulation Overall status at discharge: patient is back to baseline - Discharge Instructions Follow Up With: Denver Mcmahon CNP [Advanced Practice Nurse] - 06/09/16 4:30 pm Arnulfo Pope DO [Primary Care Provider] - 06/08/16 1:45 pm Additional Instructions: TAKE MEDICATIONS PRESCRIBED. GO TO SCHEDULED FOLLOW-UP APPOINTMENT WITH PCP. IF CHEST PAIN RETURNS GO TO ER. - Diet and Activity Activity: resume usual activities as tolerated Diet: low fat, low cholesterol, low salt diet Interval History: See below Hospital course: 65 Y.O F with PMH of HTN, TIA, s/p CEA, presented with chest pain said to have started a day prior to presentation, pain was substernal and radiating to L arm , she denies any other symptoms. At time of review, she is s/p NTG SL X4 and 2 aspirins, she did not have chest pain any longer at my time of review. Physical exam: VSS, systemic exam unremarkable except for s/p mastectomy, no chest wall tenderness Labs and Imaging reviewed: CBC, chem, WNL. EKG is non-ischemic. CXR unremarkable. EKG NSR, no ischemic changes. Report from [facility] in 2014 with moderate non-obstructive CAD Assessment/Plan: Chest pain, highly suspicious for cardiac origin, initial troponin is negative, obtain ECHO, trend troponin, continue home doses of ASA, ACEI, Lipitor, Hold Isosorbide and no BB for possible nuclear stress test a.m, if chest pain recurs, patient will need nitro drip and urgent cardiology review. Patient was stable thorughout her hospital stay, her work up for ACS is negative We were awaiting her ECHO report when RN states patient could not wait anymore Will increase her long acting nitro Follow up with her own cardiology 3 minutes spent on tobacco cessation counselling Time spent discussing smoking cessation with patient: 3 to 10 minutes - Time Spent with Patient Total time spent providing and/or coordinating discharge services: Less than 30 minutes - Constitutional Vitals: Temp Pulse Resp BP Pulse Ox 98.0 F 69 18 111/71 99 05/31/16 11:15 05/31/16 11:15 05/31/16 11:15 05/31/16 11:15 05/31/16 11:15 General appearance: Present: cooperative, A&O X 3, pleasant, no acute distress, answers questions appropriately - Head Head exam: Present: atraumatic, normocephalic - Eye Eye exam: Present: PERRL, conjuntiva pink, sclera anicteric Pupils: Present: PERRL - Neck Neck exam general surgery: Present: supple, trachea midline. Absent: lymphadenopathy - Respiratory Respiratory exam: Present: CTAB. Absent: accessory muscle use, rales, rhonchi, wheezes - Cardiovascular Cardiovascular exam: Present: RRR, +S1, +S2. Absent: diastolic murmur, gallop, rubs, systolic murmur - GI/Abdominal GI/Abdominal exam: Present: normal bowel sounds, soft, no peritoneal signs. Absent: distended, tenderness - Extremities Exam Extremities exam: Present: warm, radial pulses palpable and symetrical. Absent : calf tenderness, cyanotic, pedal edema - Neurological Exam Neurological exam: Present: alert, CN II-XII intact, oriented X3, no focal deficits. Absent: pronater drift, facial droop, speech deficit - Skin Skin exam: Present: dry, intact
--- NOTE | 2016-05-31 17:03 | ECHO - Doppler Report ---
Echocardiogram Name: Tequila Riddle Date of Study: 05/31/2016 Date: 1950 Ht: 61.0 in Medical Record#: [id number] Age: 65 Wt: 151.0 lb Gender: Female BSA: 1.68 Order #: [id number] Location: [facility] Room #: Reading Physician: Anuel Rachel DO, FACC, DAVID Betting Clerks: Becky Davis RDCS, RVT Ordering Physician: Arie Sauceda CNP Primary Physician: Arnulfo Pope DO Indications: Chest pain Impressions: LVEF 60-65%. Normal LV chamber size, wall thickness and function. Moderate left ventricular diastolic dysfunction. Normal right ventricular structure and function. No evidence of pulmonary hypertension. No significant valvular dysfunction. Left Ventricular Wall Motion: Rest Echo Findings All wall segments showed normal motion. Findings: Study Quality * Technically adequate exam. ECG Findings * Normal sinus rhythm. Left Ventricle * LVEF 60-65%. * Normal LV chamber size, wall thickness and function. * Moderate left ventricular diastolic dysfunction. Right Ventricle * Normal right ventricular structure and function. Left Atrium * Mildly dilated left atrium. Right Atrium * Normal right atrial size. Interatrial Septum * Interatrial septum not well evaluated. Aortic Valve * Trileaflet aortic valve with normal function. * No aortic stenosis. * Trace aortic regurgitation. Mitral Valve * Normal mitral valve structure and function. * No mitral regurgitation. * No mitral stenosis. Tricuspid Valve * Normal tricuspid valve structure and function. * Trace tricuspid regurgitation. * No evidence of pulmonary hypertension. Pulmonic Valve * Pulmonic valve is not well visualized. Aorta * Normally sized aortic root. Pericardium * The pericardium appears normal. IVC * The IVC is not well evaluated. Pulmonary Artery * Normal visualized portions of the main pulmonary artery. History Hypertension Years 16 Packs 3.5 Family History of CAD History of CAD/PTCA Myocardial Infarction Measurements: BP: 112/ 73 2D Normal Values RVIDd: 3.50 cm <2.7 cm IVSd: .70 cm 0.6 - 1.0 cm LVIDd: 3.00 cm 3.7 - 5.6 cm LVPWd: .70 cm 0.6 - 1.1 cm LVIDs: 1.90 cm 1.5 - 3.6 cm AO: 2.10 cm < 4.0 cm LA: 2.90 cm 2.0 - 4.0cm LA volume: 54 Mitral Valve Dec Time:204.00 msec Peak E:8.45 m/sec Peak A:4.44 m/sec E/A Ratio:1.9 Peak E' Lat Merrick:10.3 cm/s Peak E' Med Merrick:6.34 cm/s E/E' Lat Ratio:8.2 E/E' Med Ratio:13.3 Tricuspid Valve TV Regurg Peak Grad: 24.00mmHg TV Regurg Peak Merrick: 2.46m/sec Updated by Anuel Rachel DO, FACTal, DAVID, CHYNA on 05/31/2016 4:56:03 PM electronically signed on 05/31/2016 4:56:52 PM with status of Final Wall Motion Andrew: 1=Normal, 2=Hypokinesis, 3=Akinesis, 4=Dyskinesis, 5=Aneurysmal, 6=Hyperkinetic, X=Not Visualized (Blank)=Missing
--- NOTE | 2016-05-31 17:49 | Electrocardiograph Report ---
[place] [address] Test Date: 2016-05-30 Pat Name: Tequila Riddle Department: 104 Room: [facility] Gender: F Delivery Director: CONNOR : 1950 Requested By: Waqas Zarate Order Number: [id number] Reading MD: Hector Bai Measurements Intervals [place] Rate: 77 P: 3 VA: 177 QRS: 20 QRSD: 89 T: 35 QT: 364 QTc: 396 Interpretive Statements SINUS RHYTHM Electronically Signed On 05-31-2016 17:47:53 EDT by Hector Bai
[2016-06-01 11:24] VITALS: BP 95/51
== END 2016-05-31 16:32 | disposition home or self-care (01) ==
LOC: 3NENU 12:20 → EMEROO 12:20 → SUATTDRO 15:01 → 3NENU 17:19
PROVIDERS: ADMIT Internal Medicine; ATTEND Internal Medicine